=== PATIENT | female | born 1985 | race Caucasian/White ===

== ENCOUNTER 2021-02-05 15:30 | Emergency (ER) | payer OTHER ==
[2021-02-05 15:46] VITALS: BP 107/68; PULSE 91; BMI 26.6
[2021-02-05] MEDS ORDERED: SODIUM CHLORIDE 1,000 ML IV STA (16:14)
[2021-02-05] MEDS ORDERED: ACETAMINOPHEN 1000 MG/100 ML VIAL (NON FORMULARY) IVPB ONE (16:14)
[2021-02-05] MEDS ORDERED: ONDANSETRON 4 MG/2 ML VIAL IVPUSH ONE (16:15)
[2021-02-05] MEDS ORDERED: ACETAMINOPHEN INJECTION 100 ML IVPB ONE (16:26)
[2021-02-05] MEDS ORDERED: ONDANSETRON 4 MG/2 ML VIAL ONE (16:26)
[2021-02-05 17:23] LABS: BASO % 0.5 % (0-2.0); EOS % 0.7 % (0-4.5); HEMATOCRIT 38.2 % (32.4-45.2); HEMOGLOBIN 12.9 GM/dL (10.7-15.3); LYMPH % 18.1 % (8-40); MCH 29.7 pg (25.7-33.7); MCHC 33.9 g/dl (32.0-36.0); MEAN CELL VOLUME 87.8 fl (80-96); MEAN PLT VOLUME 8.3 fl (7.5-11.1); NEUT % 73.7 % (42.8-82.8); PLATELET COUNT 218 10^3/uL (134-434); RBC 4.35 M/mm3 (3.60-5.2); RDW 13.4 % (11.6-15.6); WHITE BLOOD COUNT 7.5 K/mm3 (4.0-10.0)
[2021-02-05 17:37] LABS: EPI CELLS 15 /uL (0-25.1); HYALINE CASTS 0 /uL (0-3.1); PH,URINE 6.5 (5.0-8.0); URINE APPEARANCE CLEAR; URINE BACTERIA 1116 /uL (0-1359); URINE BILIRUBIN NEGATIVE (NEGATIVE); URINE COLOR YELLOW; URINE GLUCOSE (UA) NEGATIVE (NEGATIVE); URINE KETONE NEGATIVE (NEGATIVE); URINE LEUK ESTERASE 2+ (NEGATIVE); URINE NITRITE NEGATIVE (NEGATIVE); URINE PROTEIN NEGATIVE (NEGATIVE); URINE RBC 6 /uL (0-23.9); URINE UROBILINOGEN 0.2 mg/dL (0.2-1.0); URINE WBC 49 /uL (0-25.8)
[2021-02-05 17:38] LABS: HCG,QUALITATIVE URINE Negative
[2021-02-05] MEDS ORDERED: CEFTRIAXONE 1,000 MG in DEXTROSE 5%-WATER - 50 ML IVPB ONE (17:44)
[2021-02-05 17:46] LABS: BLOOD UREA NITROGEN 14.5 mg/dL (7-18); CALCIUM 8.9 mg/dL (8.5-10.1)
[2021-02-05] MEDS ORDERED: CEFTRIAXONE 1 GM/50 ML BAG ONE (17:48)
[2021-02-05 17:49] LABS: CREATININE 0.7 mg/dL (0.55-1.3)
[2021-02-05 17:51] LABS: BILIRUBIN,TOTAL 0.3 mg/dL (0.2-1)
== END 2021-02-05 19:53 | disposition home or self-care (01) ==
LOC: JER 15:30
PROC: 3E0333Z Introduction of Anti-inflammatory into Peripheral Vein, Percutaneous Approach (ICD-10-PCS; principal; 2021-02-05)
PROC: 3E03329 Introduction of Other Anti-infective into Peripheral Vein, Percutaneous Approach (ICD-10-PCS; 2021-02-05)
PROC: 3E033GC Introduction of Other Therapeutic Substance into Peripheral Vein, Percutaneous Approach (ICD-10-PCS; 2021-02-05)
PROC: 3E0337Z Introduction of Electrolytic and Water Balance Substance into Peripheral Vein, Percutaneous Approach (ICD-10-PCS; 2021-02-05)
DX: N10 Acute pyelonephritis (principal); R10.9 Unspecified abdominal pain
CPT/HCPCS: 36415; 76775-TC; 76830-TC; 80053; 81003; 84703; 85025; 87086; 93005; 93010; 99285-25; J0131